=== PATIENT | female | born 1995 | race Caucasian/White ===

== ENCOUNTER 2017-08-24 17:23 | Emergency (ER) | payer MEDICAID ==
[~2017-08-24] VITALS: Ht 180.3 cm; Wt 50.3 kg
[~2017-08-24 17:23] MED LIST: NITR-65 PO
[2017-08-24] MEDS ORDERED: ONDA8TAB13 (17:54)
[2017-08-24] MEDS ORDERED: LACTATED RINGERS 1,000 ML IV ONE (18:11)
--- NOTE | 2017-08-24 18:11 | ED General ---
General Chief Complaint: -Female Stated Complaint: 20W2D, CRAMPING AND CP WITH R ARM NUMBNESS Nursing Triage Note: ARRIVED VIA AMB TO ROOM 06. COMPLAINS OF LOWER ABD CRAMPING OFF AND ON X1 WEEK ET CHEST PAIN THAT MAKES HER RIGHT ARM TINGLE X1 WEEK. PT STATES SHE IS 20 WEEKS GESTATION. Nursing Sepsis Screen: No Definite Risk Source of Information: Patient Exam Limitations: No Limitations History of Present Illness Date Seen by Provider: Aug 24, 2017 Time Seen by Provider: 17:55 Initial Comments PT ARRIVES VIA POV FROM HOME PT STATES SHE IS 20 WEEKS 2 DAYS STATES SHE HAS HAD LOWER ABDOMINAL CRAMPING X 1 1/2 WEEKS STATES SHE HAS HAD "A LITTLE BIT OF SPOTTING" OFF AND ON X 1 WEEK--BUT NOT FOR THE LAST 24 HOURS STATES "I ALSO HAVE REALLY BAD CHEST PAINS AND IT MAKES MY RIGHT ARM TINGLE" -- SYMPTOMS ONGOING X 1 1/2 WEEKS C/O MILD NAUSEA, NO VOMITING NO DIARRHEA NO URINARY SYMPTOMS NO FEVER NO SHORTNESS OF BREATH NO SWELLING IN LEGS/FEET PT IS NOT HAVING ANY SYMPTOMS RIGHT NOW PT IS AB 2--BOTH SPONTANEOUS MISCARRIAGES IN EARLY FIRST TRIMESTER PT STATES SHE HAS HAD ALL OF THESE EXACT SAME SYMPTOMS WITH PREVIOUS FULL-TERM AND IS NO DIFFERENT PT HAS NOT TAKEN ANYTHING FOR PAIN AT ANY TIME PT HAS NOT SOUGHT CARE AT ANY TIME FOR THESE SYMPTOMS SYMPTOMS ARE NO DIFFERENT TODAY IN ANY WAY PT STATES "I DIDN'T REALLY THINK ANYTHING ABOUT IT" BUT STATES CRAMPING HAS BEEN GETTING A LITTLE WORSE OB: DR. THOMAS--LAST VISIT 08/01/17 PCP: BERNADETTE Allergies and Home Medications Allergies Coded Allergies: No Known Drug Allergies (Unverified , 02/27/15) Patient Home Medication List Home Medication List Reviewed: Yes Review of Systems Constitutional: no symptoms reported; No chills, No diaphoresis, No fever EENTM: no symptoms reported Respiratory: no symptoms reported Cardiovascular: see HPI, chest pain; No edema, No palpitations, No syncope Gastrointestinal: see HPI, abdominal pain; No diarrhea; nausea; No vomiting Genitourinary: see HPI : Yes Musculoskeletal: no symptoms reported Skin: no symptoms reported Psychiatric/Neurological: No Symptoms Reported Hematologic/Lymphatic: No Symptoms Reported Immunological/Allergic: no symptoms reported Past [id number] Hx Patient Social History Alcohol Use: Denies Use Recreational Drug Use: No Smoking Status: Never a Smoker Recent Foreign Travel: No Contact w/Someone Who Travel: No Recent Infectious Disease Expo: No Immunizations Up To Date Tetanus Booster (TDap): Unknown Past Medical History Surgeries: No Respiratory: No Cardiac: No Neurological: No : Yes Hx : 4 Hx Para: 1 Hx Total # of Abortions (Sp): 2 (SPONTANEOUS MISCARRIAGES IN EARLY FIRST TRIMESTERNO D&C REQUIRED) Reproductive Disorders: No Female Reproductive Disorders: Denies Sexually Transmitted Disease: No HIV/AIDS: No Genitourinary: No Gastrointestinal: No Musculoskeletal: No Endocrine: Yes (GESTATIONAL DIABETES WITH LAST . ) HEENT: No Cancer: No Did You Recieve Any Treatments: No Psychosocial: No Integumentary: No Blood Disorders: No Physical Exam Vital Signs Vital Signs - First Documented 08/24/17 17:30 Temp 98.0 Pulse 76 Resp 18 B/P (MAP) 120/73 (89) Pulse Ox 98 O2 Delivery Room Air Capillary Refill : Less Than 3 Seconds General Appearance: No Apparent Distress, WD/WN, Other (SMILING, LAYING OUTSTRETCHED, DOES NOT APPEAR TO BE IN ANY DISCOMFORT, WALKS UPRIGHT AND MOVES QUICKLY WITHOUT DIFFICULTY) HEENT: PERRL/EOMI Neck: Normal Inspection Respiratory: Normal Breath Sounds, No Accessory Muscle Use, No Respiratory Distress Cardiovascular: Regular Rate, Rhythm, No Edema, No Murmur, Normal Peripheral Pulses Gastrointestinal: Soft, Tenderness (MILD SUPRAPUBIC TENDERNESS. 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 Skin: Normal Color, Warm/Dry Progress/Results/Core Measures Suspected Sepsis Recent Fever Within 48 Hours: No Infection Criteria Present: None New/Unexplained Altered Menta: No Sepsis Screen: No Definite Risk SIRS Temperature:98.0 Pulse: 76 Respiratory Rate: 18 Laboratory Tests 08/24/17 18:25: White Blood Count 7.0 Blood Pressure 120 /73 Mean: 89 Laboratory Tests 08/24/17 18:25: Creatinine 0.51L, Platelet Count 282, Total Bilirubin 0.2 Results/Orders Lab Results Laboratory Tests Test 08/24/17 18:10 08/24/17 18:25 Range/Units Urine Color YELLOW Urine Clarity CLEAR Urine pH 7 5-9 Urine Specific [place] 1.015 L 1.016-1.022 Urine Protein 1+ H NEGATIVE Urine Glucose (UA) NEGATIVE NEGATIVE Urine Ketones NEGATIVE NEGATIVE Urine Nitrite NEGATIVE NEGATIVE Urine Bilirubin NEGATIVE NEGATIVE Urine Urobilinogen NORMAL NORMAL MG/DL Urine Leukocyte Esterase 3+ H NEGATIVE Urine RBC (Auto) NEGATIVE NEGATIVE Urine RBC NONE /HPF Urine WBC 25-50 H /HPF Urine Squamous Epithelial Cells >50 H /HPF Urine Crystals NONE /LPF Urine Bacteria FEW H /HPF Urine Casts NONE /LPF Urine Mucus NEGATIVE /LPF Urine Culture Indicated YES Urine Opiates Screen NEGATIVE NEGATIVE Urine Oxycodone Screen NEGATIVE NEGATIVE Urine Methadone Screen NEGATIVE NEGATIVE Urine Propoxyphene Screen NEGATIVE NEGATIVE Urine Barbiturates Screen NEGATIVE NEGATIVE Ur Tricyclic Antidepressants Screen NEGATIVE NEGATIVE Urine Phencyclidine Screen NEGATIVE NEGATIVE Urine Amphetamines Screen NEGATIVE NEGATIVE Urine Methamphetamines Screen NEGATIVE NEGATIVE Urine Benzodiazepines Screen NEGATIVE NEGATIVE Urine Cocaine Screen NEGATIVE NEGATIVE Urine Cannabinoids Screen NEGATIVE NEGATIVE White Blood Count 7.0 4.3-11.0 10^3/uL Red Blood Count 4.59 4.35-5.85 10^6/uL Hemoglobin 11.9 11.5-16.0 G/DL Hematocrit 35 35-52 % Mean Corpuscular Volume 76 L 80-99 FL Mean Corpuscular Hemoglobin 26 25-34 PG Mean Corpuscular Hemoglobin Concent 34 32-36 G/DL Red Cell Distribution Width 15.7 H 10.0-14.5 % Platelet Count 282 130-400 10^3/uL Mean Platelet Volume 10.1 7.4-10.4 FL Neutrophils (%) (Auto) 66 42-75 % Lymphocytes (%) (Auto) 24 12-44 % Monocytes (%) (Auto) 10 0-12 % Eosinophils (%) (Auto) 1 0-10 % Basophils (%) (Auto) 0 0-10 % Neutrophils # (Auto) 4.6 1.8-7.8 X 10^3 Lymphocytes # (Auto) 1.7 1.0-4.0 X 10^3 Monocytes # (Auto) 0.7 0.0-1.0 X 10^3 Eosinophils # (Auto) 0.1 0.0-0.3 10^3/uL Basophils # (Auto) 0.0 0.0-0.1 10^3/uL Sodium Level 138 135-145 MMOL/L Potassium Level 3.6 3.6-5.0 MMOL/L Chloride Level 106 98-107 MMOL/L Carbon Dioxide Level 24 21-32 MMOL/L Anion Gap 8 5-14 MMOL/L Blood Urea Nitrogen 7 7-18 MG/DL Creatinine 0.51 L 0.60-1.30 MG/DL Estimat Glomerular Filtration Rate > 60 BUN/Creatinine Ratio 14 Glucose Level 86 70-105 MG/DL Calcium Level 9.2 8.5-10.1 MG/DL Magnesium Level 1.9 1.8-2.4 MG/DL Total Bilirubin 0.2 0.1-1.0 MG/DL Aspartate Amino Transf (AST/SGOT) 13 5-34 U/L Alanine Aminotransferase (ALT/SGPT) 8 0-55 U/L Alkaline Phosphatase 84 40-136 U/L Troponin I < 0.30 <0.30 NG/ML Total Protein 6.7 6.4-8.2 GM/DL Albumin 3.6 3.2-4.5 GM/DL Amylase Level 45 25-125 U/L Lipase 12 8-78 U/L Human Chorionic Gonadotropin, Quant [id number] H <5 MIU/ML My Orders Orders - CELIO PEDERSON DO Saline Lock/Iv-Start (08/24/17 18:11) Ekg Tracing (08/24/17 18:11) Monitor-Rhythm Ecg Trace Only (08/24/17 18:11) Amylase (08/24/17 18:11) Cbc With Automated Diff (08/24/17 18:11) Comprehensive Metabolic Panel (08/24/17 18:11) Drug Screen Stat (Urine) (08/24/17 18:11) Hcg,Quantitative (08/24/17 18:11) Lipase (08/24/17 18:11) Magnesium (08/24/17 18:11) Troponin I (08/24/17 18:11) Ua Culture If Indicated (08/24/17 18:11) Saline Lock/Iv-Start (08/24/17 18:11) Lactated Ringers (Lr 1000 Ml Iv Solution (08/24/17 18:11) Heart Tones (08/24/17 18:15) Urine Culture (08/24/17 18:10) Limited [id number] (08/24/17 18:37) Rocephin 1 Gm Iv (1 X Dose) (08/24/17 19:45) Medications Given in ED Current Medications Medications Dose Ordered Sig/Tato Route Start Time Stop Time Status Last Admin Dose Admin Lactated Ringer's 1,000 ml @ 0 mls/hr Q0M ONCE IV 08/24/17 18:11 08/24/17 18:15 DC 08/24/17 18:26 1,000 MLS/HR Vital Signs/I&O 08/24/17 17:30 Temp 98.0 Pulse 76 Resp 18 B/P (MAP) 120/73 (89) Pulse Ox 98 O2 Delivery Room Air Capillary Refill : Less Than 3 Seconds Blood Pressure Mean: 89 Progress Note : Progress Note NO SYMPTOMS OF ANY KIND DURING ER STAY ECG Initial ECG Impression Date: Aug 24, 2017 Initial ECG Impression Time: 18:12 Initial ECG Rate: 71 Initial ECG Rhythm: Normal Sinus Initial ECG Comparisson: No Previous ECG Available Diagnostic Imaging Comments ULTRASOUND --IUP 19W 1 DAY, PLACENTA PREVIA WITH POSTERIOR PLACENTA, FHR 138. PER RADIOLOGIST REPORT @ 1940 Reviewed: Reviewed by Me Departure Impression Primary Impression: UTI (urinary tract infection) in in second trimester Additional Impression: Placenta previa antepartum in second trimester Disposition: 01 HOME, SELF-CARE Condition: Stable Departure-Patient Inst. Referrals: MESSI THOMAS MD (PCP/Family) Primary Care Physician [facility] Patient Instructions: Bleeding With (DC), How to Adapt to Physical Changes During , How to Plan and Prepare for a Healthy , Placenta Previa, - The Fifth Month, - The Fourth Month, SPOTTING IN EARLY , Urinary Tract Infection, Adult (DC) Add. Discharge Instructions: LOTS OF CLEAR LIQUIDS-- NO COFFEE, POP OR TEA TYLENOL NEEDED FOR PAIN NOTHING IN VAGINA AND NO INTERCOURSE, UNTIL YOUR DR HAS CLEARED YOU All discharge instructions reviewed with patient and/or family. Voiced understanding. Scripts Nitrofurantoin Monohyd/M-Cryst (Macrobid 100 mg Capsule) 100 Mg Capsule 100 MG PO BID, #20 CAP Prov: CELIO PEDERSON DO 08/24/17 CELIO PEDERSON DO Aug 24, 2017 18:11
[2017-08-24 18:28] LABS: BILIRUBIN,URINE NEGATIVE (NEGATIVE); CLARITY,URINE CLEAR; COLOR,URINE YELLOW; GLUCOSE, URINE (UA) NEGATIVE (NEGATIVE); KETONES,URINE NEGATIVE (NEGATIVE); LEUKOCYTE ESTERASE ,URINE 3+ (NEGATIVE); NITRITE,URINE NEGATIVE (NEGATIVE); PH,URINE 7 (5-9); PROTEIN,URINE 1+ (NEGATIVE); UROBILINOGEN,URINE NORMAL (NORMAL)
[2017-08-24 18:34] LABS: BASOPHILS % (AUTO) 0 % (0-10); EOSINOPHILS # (AUTO) 0.1 10^3/uL (0.0-0.3); EOSINOPHILS % (AUTO) 1 % (0-10); HEMATOCRIT 35 % (35-52); HEMOGLOBIN 11.9 G/DL (11.5-16.0); LYMPHOCYTES # (AUTO) 1.7 X 10^3 (1.0-4.0); LYMPHOCYTES % (AUTO) 24 % (12-44); MEAN CORPUSCULAR HEMOGLOBIN 26 PG (25-34); MEAN CORPUSCULAR HGB CONC 34 G/DL (32-36); MEAN CORPUSCULAR VOLUME 76 FL (80-99); MEAN PLATELET VOLUME 10.1 FL (7.4-10.4); MONOCYTES # (AUTO) 0.7 X 10^3 (0.0-1.0); MONOCYTES % (AUTO) 10 % (0-12); NEUTROPHILS # (AUTO) 4.6 X 10^3 (1.8-7.8); NEUTROPHILS % (AUTO) 66 % (42-75); PLATELET COUNT 282 10^3/uL (130-400); RED BLOOD COUNT 4.59 10^6/uL (4.35-5.85); RED CELL DISTRIBUTION WIDTH 15.7 % (10.0-14.5)
[2017-08-24 18:35] LABS: BACTERIA,URINE FEW /HPF; SQUAMOUS EPITHELIAL CELL,UR >50 /HPF; WBC,URINE 25-50 /HPF
[2017-08-24 18:40] LABS: AMPHETAMINE SCREEN, URINE NEGATIVE (NEGATIVE); BARBITURATE SCREEN URINE NEGATIVE (NEGATIVE); BENZODIAZEPINES SCREEN URINE NEGATIVE (NEGATIVE); CANNABINOID SCREEN, URINE NEGATIVE (NEGATIVE); COCAINE SCREEN URINE NEGATIVE (NEGATIVE); METHADONE STAT NEGATIVE (NEGATIVE); METHAMPHETAMINE SCREEN URINE S NEGATIVE (NEGATIVE); OPIATE SCREEN URINE NEGATIVE (NEGATIVE); OXYCODONE STAT NEGATIVE (NEGATIVE); PROPOXYPHENE STAT NEGATIVE (NEGATIVE); TRICYCLIC ANTIDEPRESSANTS SCRE NEGATIVE (NEGATIVE)
[2017-08-24 18:58] LABS: ALANINE AMINOTRANSFERASE 8 U/L (0-55); ALBUMIN 3.6 GM/DL (3.2-4.5); ALKALINE PHOSPHATASE 84 U/L (40-136); AMYLASE 45 U/L (25-125); BILIRUBIN,TOTAL 0.2 MG/DL (0.1-1.0); BUN/CREATININE RATIO 14; CALCIUM 9.2 MG/DL (8.5-10.1); CARBON DIOXIDE 24 MMOL/L (21-32); CHLORIDE 106 MMOL/L (98-107); CREATININE SERUM 0.51 MG/DL (0.60-1.30); GFR ESTIMATED > 60; GLUCOSE 86 MG/DL (70-105); LIPASE 12 U/L (8-78); MAGNESIUM 1.9 MG/DL (1.8-2.4); POTASSIUM 3.6 MMOL/L (3.6-5.0); SODIUM 138 MMOL/L (135-145); TOTAL PROTEIN 6.7 GM/DL (6.4-8.2)
--- NOTE | 2017-08-24 19:34 | Diagnostic Imaging Report ---
INDICATION: Pelvic pain. EXAMINATION: Limited OB sonogram. FINDINGS: There is a single living intrauterine . The placenta is posterior and appears to be low-lying crossing the cervix. heart rate was recorded at 138 beats per minute. measurements correspond to a gestational age of 19 weeks and 1 day. There are no gross anomalies seen. IMPRESSION: Single living intrauterine with estimated gestational age of 19 weeks 1 day +/-2 weeks. There appears to be placenta previa with a posterior placenta. Recommend repeat study later in gestation to evaluate the cervical placental relationship. Dictated by: Dictated on workstation # [id number]
[2017-08-24] MEDS ORDERED: NITR-65 PO (19:45)
[2017-08-24] MEDS ORDERED: cefTRIAXone INJECTION 1,000 MG in NS (IVPB) 100 ML IV ONE (19:45)
[2017-08-24 20:58] VITALS: BP 100/69
== END 2017-08-24 20:58 | disposition home or self-care (01) ==
LOC: EDUNIT# 17:23 → ER 17:25
DX: O23.42 Unspecified infection of urinary tract in pregnancy, second trimester (principal); O44.02 Complete placenta previa NOS or without hemorrhage, second trimester; Z3A.19 19 weeks gestation of pregnancy; Z87.59 Personal history of other complications of pregnancy, childbirth and the puerperium
CPT/HCPCS: 36415; 76815; 80053; 80306; 81000; 82150; 83690; 83735; 84484; 84702; 85025; 87088; 93005; 93041; 96361; 96365

== ENCOUNTER 2017-09-12 20:05 | Outpatient (CLI) | payer MEDICAID ==
[~2017-09-12] VITALS: Ht 154.9 cm; Wt 54.0 kg
[2017-09-12 19:56] VITALS: BP 114/59
[~2017-09-12 20:05] MED LIST changes: +ONDA8TAB13
[2017-09-12] MEDS ORDERED: ONDA8TAB9 SL (20:26)
[2017-09-12] MEDS ORDERED: PREN-142 PO (20:26)
--- NOTE | 2017-09-13 19:57 | Physician Query-Final Dx ---
[facility] [place] 09/13/177: Clinic Account Progress/Dx Physician Query: Please give diagnosis Date of Service September 12, 2017 at 20:05 MESSI THOMAS MD 09/18/17 1313: Clinic Account Progress/Dx DIAGNOSIS: Diagnosis false labor [place] September 13, 2017 19:57 MESSI THOMAS MD September 18, 2017 13:13
== END 2017-09-12 20:35 | disposition home or self-care (01) ==
LOC: WSo 20:05 → LDRP 20:05 → WSo 20:35
PROVIDERS: ATTEND Obstetrics & Gynecology
DX: O47.02 False labor before 37 completed weeks of gestation, second trimester (principal); Z3A.22 22 weeks gestation of pregnancy
CPT/HCPCS: 99212